=== PATIENT | male | born 1995 | race Caucasian/White ===

== ENCOUNTER 2016-05-18 07:51 | Emergency (ER) | payer BC ==
[2016-05-18] MEDS ORDERED: KCL CR 20 MEQ TAB PO ONE (10:19)
[2016-05-18] MEDS ORDERED: POTASSIUM CHLOR 10MEQ -ED ONLY 50 ML IV ONE (10:20)
[2016-05-18] MEDS ORDERED: SODIUM CHLORIDE 0.9% 50 ML IV ONE (10:33)
== END 2016-05-18 12:13 | disposition home or self-care (01) ==
LOC: ER 07:51
CPT/HCPCS: 71020; 93005; 96361; 96365